=== PATIENT | female | born 1990 | race Caucasian/White ===

== ENCOUNTER 2017-03-28 09:07 | Emergency (ER) | payer BC ==
[2017-03-28 09:28] VITALS: BP 120/71
[2017-03-28] MEDS ORDERED: Sodium Chloride 0.9% 1,000 ML IV ONE (09:42)
[2017-03-28] MEDS ORDERED: Ondansetron 4 MG/2 ML SDV IVPUSH ONE (09:42)
[2017-03-28] MEDS ORDERED: Sodium Chloride 0.9% 10 ML Syringe FLUSH PRN (09:42)
--- NOTE | 2017-03-28 09:47 | EDM.PDOC ---
ED HPI GENERAL MEDICAL PROBLEM - General Chief Complaint: Gastrointestinal Problem Stated Complaint: UNCONTROLLABLE VOMITING Time Seen by Provider: 03/28/17 09:31 Source of Information: Reports: Patient History Limitations: Reports: No Limitations - History of Present Illness INITIAL COMMENTS - FREE TEXT/NARRATIVE: Patient reports having diarrhea and vomiting since midnight this AM. States no one else has been sick. Low grade temperature. Has no headache. Some chills. Surgical history includes c-sections. Denies smoking history, no drug use, rare alcohol. Denies chest pain, SOB, no blood in urine, stool, or emesis. Complaint today is vomiting and diarrhea. No other complaints. Onset: Today, Sudden Onset Date: 03/28/17 Onset Time: 00:00 Duration: Intermittent Location: Reports: Abdomen Quality: Reports: Ache, Other (cramping) Severity: Moderate Associated Symptoms: Reports: Nausea/Vomiting Abdominal Pain Score (Numeric/FACES): 8 - Related Data Allergies Allergy/AdvReac Type Severity Reaction Status Date / Time No Known Allergies Allergy Verified 03/28/17 09:21 Home Meds: Home Meds FLUoxetine HCl [Fluoxetine HCl] 40 mg DAILY 03/28/17 [History] Pantoprazole Sodium [Protonix] 10 mg DAILY 03/28/17 [History] Past Medical History HEENT History: Reports: Otitis Media [employer]GER [employer] History: Reports: , Other (See Below) Other OB/BYN History: Patient is 13-14 weeks currently and has had a previous . Musculoskeletal History: Reports: Other (See Below) Other Musculoskeletal History: History of sciatic pain - Past Surgical History HEENT Surgical History: Reports: Other (See Below) Social & Family History - Tobacco Use Smoking Status *Q: Current Every Day Smoker Years of Tobacco use: 15 Packs/Tins Daily: 0.5 - Recreational Drug Use Recreational Drug Use: No ED ROS GENERAL - Review of Systems Review Of Systems: See Below Constitutional: Reports: No Symptoms HEENT: Reports: No Symptoms Respiratory: Reports: No Symptoms Cardiovascular: Reports: No Symptoms Endocrine: Reports: No Symptoms GI/Abdominal: Reports: Abdominal Pain, Diarrhea, Nausea, Vomiting : Reports: No Symptoms Musculoskeletal: Reports: No Symptoms Skin: Reports: No Symptoms Neurological: Reports: No Symptoms Psychiatric: Reports: No Symptoms Hematologic/Lymphatic: Reports: No Symptoms Immunologic: Reports: No Symptoms ED EXAM, GI/ABD - Physical Exam Exam: See Below Exam Limited By: No Limitations General Appearance: Alert, WD/WN, Mild Distress Eyes: Bilateral: EOMI Ears: Normal TMs Nose: Normal Inspection Throat/Mouth: Normal Inspection, Normal Oropharynx Head: Atraumatic, Normocephalic Neck: Normal Inspection Respiratory/Chest: No Respiratory Distress, Lungs Clear, Normal Breath Sounds, No Accessory Muscle Use, Chest Non-Tender Cardiovascular: Normal Peripheral Pulses, Regular Rate, Rhythm, No Edema, No Gallop, No Murmur GI/Abdominal Exam: Soft, Tender, Abnormal Bowel Sounds (hypoactive) Extremities: Normal Inspection, Normal Range of Motion, Non-Tender, Normal Capillary Refill Neurological: Alert, Oriented, CN II-XII Intact, Normal Cognition, Normal Gait, Normal Reflexes, No Motor/Sensory Deficits Psychiatric: Normal Affect, Normal Mood Skin Exam: Warm, Dry, Intact, Normal Color, No Rash Lymphatic: No Adenopathy Course - Vital Signs Last Recorded V/S: Last Vital Signs Temp 37.4 C 03/28/17 09:10 Pulse 112 H 03/28/17 09:10 Resp 16 03/28/17 09:10 BP 120/71 03/28/17 09:10 Pulse Ox - Orders/Labs/Meds Orders: Active Orders 24 hr Category Date Time Status Sodium Chloride 0.9% [Saline Flush] Med 03/28/17 09:42 Active 10 ml FLUSH ASDIRECTED PRN Saline Lock Insert [OM.PC] Routine Oth 03/28/17 09:42 Ordered Medication Orders Sodium Chloride (Saline Flush) 10 ml FLUSH ASDIRECTED PRN PRN Reason: Keep Vein Open Labs: Laboratory Tests 03/28/17 03/28/17 Range/Units 09:52 09:52 WBC 11.4 H (4.0-10.0) x10^3/uL RBC 5.33 (4.00-5.50) x10^6/uL Hgb 16.0 (12.0-16.0) g/dL Hct 45.1 (33.0-47.0) % MCV 84.6 (78.0-93.0) fL MCH 30.0 (26.0-32.0) pg MCHC 35.5 (32.0-36.0) g/dL RDW Coeff of Bri 13.4 (10.0-15.0) % Plt Count 235 (130-400) x10^3/uL Neut % (Auto) 92.1 H (50.0-80.0) % Lymph % (Auto) 4.1 L (25.0-50.0) % [place] % (Auto) 3.7 (2.0-11.0) % Eos % (Auto) 0.0 (0.0-4.0) % Baso % (Auto) 0.1 L (0.2-1.2) % Sodium 139 (136-145) mmol/L Potassium 4.0 (3.5-5.1) mmol/L Chloride 104 (98-107) mmol/L Carbon Dioxide 23 (21-32) mmol/L BUN 16 (7-18) mg/dL Creatinine 1.0 (0.55-1.02) mg/dL Est Cr Clr Drug Dosing 60.16 mL/min Estimated GFR (MDRD) > 60 Glucose 128 H (74-106) mg/dL Calcium 8.7 (8.5-10.1) mg/dL C-Reactive Protein 4.3 H (<=0.9) mg/dL Meds: Medications Generic Name Dose Route Start Last Admin Trade Name Freq PRN Reason Stop Dose Admin Sodium Chloride 10 ml 03/28/17 09:42 Saline Flush FLUSH ASDIRECTED PRN Keep Vein Open Discontinued Medications Generic Name Dose Route Start Last Admin Trade Name Freq PRN Reason Stop Dose Admin Sodium Chloride 1,000 mls @ 999 mls/hr 03/28/17 09:42 03/28/17 10:10 Normal Saline IV 03/28/17 10:42 999 mls/hr ONETIME ONE Administration Ondansetron HCl 4 mg 03/28/17 09:42 03/28/17 10:11 Zofran IVPUSH 03/28/17 09:43 4 mg ONETIME ONE Administration - Re-Assessments/Exams Free Text/Narrative Re-Assessment/Exam: 03/28/17 09:48 Will hydrate with 1-2 liters of saline, will give anti emetic, check electrolytes and blood count. 03/28/17 10:55 given script for zofran Departure - Departure Time of Disposition: 10:57 Disposition: Home, Self-Care 01 Condition: Good Clinical Impression: Gastroenteritis - Discharge Information Instructions: Dehydration, Adult, [id number], Viral Gastroenteritis, Adult, [id number], Nausea and Vomiting, Adult, [id number], Diarrhea, Adult, Easy-to -Read Forms: ED Department Discharge Additional Instructions: Try to stay hydrated as well as you can with water or powerade/gatorade type drinks. Make sure you practice good hand hygiene to prevent spreading the illness to others at work or home. See your primary doctor as symptoms warrant. Please call us with any questions or concerns. - Problem List & Annotations (1) Gastroenteritis SNOMED Code(s): 81970818 Code(s): K52.9 - NONINFECTIVE GASTROENTERITIS AND COLITIS, UNSPECIFIED Status: Acute Priority: Low Current Visit: Yes - Problem List Review Problem List Initiated/Reviewed/Updated: Yes - My Orders Last 24 Hours: My Active Orders 03/28/17 09:42 Sodium Chloride 0.9% [Saline Flush] 10 ml FLUSH ASDIRECTED PRN Saline Lock Insert [OM.PC] Routine - Assessment/Plan Last 24 Hours: My Active Orders 03/28/17 09:42 Sodium Chloride 0.9% [Saline Flush] 10 ml FLUSH ASDIRECTED PRN Saline Lock Insert [OM.PC] Routine Assessment:: viral gastroenteritis Plan: Try to stay hydrated as well as you can with water or powerade/gatorade type drinks. Make sure you practice good hand hygiene to prevent spreading the illness to others at work or home. See your primary doctor as symptoms warrant. Please call us with any questions or concerns.
[2017-03-28 10:18] LABS: CHLORIDE,CL 104 mmol/L (98-107); SODIUM,NA 139 mmol/L (136-145)
== END 2017-03-28 11:05 | disposition home or self-care (01) ==
LOC: VM.ED 09:07
DX: O99.611 Diseases of the digestive system complicating pregnancy, first trimester (principal); K52.9 Noninfective gastroenteritis and colitis, unspecified; O99.331 Smoking (tobacco) complicating pregnancy, first trimester; F17.210 Nicotine dependence, cigarettes, uncomplicated; Z79.899 Other long term (current) drug therapy; Z3A.13 13 weeks gestation of pregnancy
CPT/HCPCS: 36415; 80048; 85025; 86140; 96361; 96374; 99284; J2405; J7030

== ENCOUNTER 2017-09-25 17:34 | Emergency (ER) | payer BC ==
[2017-09-25 17:49] VITALS: BP 139/77
[2017-09-25] MEDS ORDERED: Sodium Chloride 0.9% 10 ML Syringe FLUSH PRN (17:58)
[2017-09-25] MEDS ORDERED: HYDROmorphone 1 MG/ML Syringe IVPUSH ONE (17:59)
[2017-09-25] MEDS ORDERED: Sodium Chloride 0.9% 1,000 ML IV ONE (17:59)
[2017-09-25] MEDS ORDERED: Ondansetron 4 MG/2 ML SDV IVPUSH ONE (18:00)
[2017-09-25 18:48] LABS: CHLORIDE,CL 104 mmol/L (98-107); SODIUM,NA 140 mmol/L (136-145)
--- NOTE | 2017-09-25 18:56 | EDM.PDOC ---
ED HPI GENERAL MEDICAL PROBLEM - General Chief Complaint: Abdominal Pain Time Seen by Provider: 09/25/17 17:58 Source of Information: Reports: Patient History Limitations: Reports: No Limitations - History of Present Illness INITIAL COMMENTS - FREE TEXT/NARRATIVE: Pt. presents to ER with complaints of RLQ abdominal pain that started at apprx. 2:30 this afternoon. Pt. states that the discomfort is worsening. She has a decreased appetite. Denies any fever or chills. She did have a normal BM today as well as 3 yesterday. She states that they were formed. Denies vomiting or diarrhea. SHe has been very nauseated. She has had 2 previous c-sections and has had general anesthesia for wisdom tooth removal and denies any issues with anesthesia. She denies any pertinent PMH. Pt. states that the pain started out as dull and crampy but has become more sharp. She states that the pain does not radiate elsewhere, and localized to her RLQ. She states that the pain is worse with movement, particularly walking. Onset: Today Onset Date: 09/25/17 Onset Time: 14:30 Duration: Constant, Getting Worse Location: Reports: Abdomen Quality: Reports: Sharp Severity: Moderate Improves with: Reports: Rest Worsens with: Reports: Movement Associated Symptoms: Reports: Nausea/Vomiting Right Lower Abdomen Pain Score (Numeric/FACES): 8 - Related Data Allergies Allergy/AdvReac Type Severity Reaction Status Date / Time No Known Allergies Allergy Verified 09/25/17 17:45 Home Meds: Home Meds . 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 Musculoskeletal History: Reports: Other (See Below) Other Musculoskeletal History: History of sciatic pain Psychiatric History: Reports: Depression - Past Surgical History Female Surgical History: Reports: Section Social & Family History - Tobacco Use Smoking Status *Q: Current Every Day Smoker Years of Tobacco use: 15 Packs/Tins Daily: 1 - Alcohol Use Days Per Week of Alcohol Use: 1 Number of Drinks Per Day: 1 Total Drinks Per Week: 1 - Recreational Drug Use Recreational Drug Use: No Drug Use in Last 12 Months: No Recreational Drug Type: Reports: Marijuana/Hashish ED ROS GENERAL - Review of Systems Review Of Systems: See Below Constitutional: Reports: Decreased Appetite. Denies: Fever, Chills, Fatigue, Diaphoresis HEENT: Reports: No Symptoms Respiratory: Reports: No Symptoms Cardiovascular: Reports: No Symptoms Endocrine: Reports: No Symptoms GI/Abdominal: Reports: Abdominal Pain (RLQ), Decreased Appetite, Nausea. Denies : Black Stool, Bloody Stool, Diarrhea, Distension, Flatus, Hematochezia, Melena , Mucous in Stool, Vomiting : Reports: No Symptoms Musculoskeletal: Reports: No Symptoms Skin: Reports: No Symptoms Neurological: Reports: No Symptoms Psychiatric: Reports: No Symptoms Hematologic/Lymphatic: Reports: No Symptoms Immunologic: Reports: No Symptoms ED EXAM, GENERAL - Physical Exam Exam: See Below Exam Limited By: No Limitations General Appearance: Alert, WD/WN, No Apparent Distress Eye Exam: Bilateral Eye: EOMI, Normal Fundi, Normal Inspection, PERRL Throat/Mouth: Normal Inspection, Normal Lips, Normal Teeth, Normal Gums, Normal Oropharynx, Normal Voice, No Airway Compromise Head: Atraumatic, Normocephalic Neck: Normal Inspection, Supple, Non-Tender, Full Range of Motion Respiratory/Chest: No Respiratory Distress, Lungs Clear, Normal Breath Sounds, No Accessory Muscle Use, Chest Non-Tender Cardiovascular: Normal Peripheral Pulses, Regular Rate, Rhythm, No Edema, No Gallop, No JVD, No Murmur, No Rub Peripheral Pulses: 4+: Radial (L), Radial (R) GI/Abdominal: Normal Bowel Sounds, Soft, Guarding, Rebound, Tender (RLQ). No: Distended, Abnormal Bowel Sounds, Hepatomegaly, Splenomegaly (Female) Exam: Deferred Rectal (Female) Exam: Deferred Back Exam: Normal Inspection, Full Range of Motion, NT Extremities: Normal Inspection, Normal Range of Motion, Non-Tender, Normal Capillary Refill, No Pedal Edema Neurological: Alert, Oriented, CN II-XII Intact, Normal Cognition, Normal Gait, Normal Reflexes, No Motor/Sensory Deficits Psychiatric: Normal Affect, Normal Mood Skin Exam: Warm, Dry, Intact, Normal Color, No Rash Lymphatic: No Adenopathy Course - Vital Signs Last Recorded V/S: Last Vital Signs Temp 36.9 C 09/25/17 17:45 Pulse 101 H 09/25/17 17:45 Resp 16 09/25/17 17:45 BP 139/77 09/25/17 17:45 Pulse Ox 97 09/25/17 17:45 - Orders/Labs/Meds Orders: Active Orders 24 hr Category Date Time Status Abdomen Pelvis w Cont [CT] Stat Exams 09/25/17 18:50 Taken Sodium Chloride 0.9% [Normal Saline] 1,000 ml Med 09/25/17 17:59 Active IV .BOLUS Sodium Chloride 0.9% [Saline Flush] Med 09/25/17 17:58 Active 10 ml FLUSH ASDIRECTED PRN Peripheral IV Insertion Adult [OM.PC] Routine Oth 09/25/17 17:59 Ordered Medication Orders Sodium Chloride (Normal Saline) 1,000 mls @ 125 mls/hr IV .BOLUS ONE Stop: 09/26/17 01:58 Last Admin: 09/25/17 18:06 Dose: 125 mls/hr Sodium Chloride (Saline Flush) 10 ml FLUSH ASDIRECTED PRN PRN Reason: Keep Vein Open Labs: Laboratory Tests 09/25/17 09/25/17 09/25/17 Range/Units 17:50 17:50 17:55 WBC 11.8 H (4.0-10.0) x10^3/uL RBC 4.57 (4.00-5.50) x10^6/uL Hgb 14.0 D (12.0-16.0) g/dL Hct 41.1 (33.0-47.0) % MCV 89.9 D (78.0-93.0) fL MCH 30.6 (26.0-32.0) pg MCHC 34.1 (32.0-36.0) g/dL RDW Coeff of Bri 13.1 (10.0-15.0) % Plt Count 256 (130-400) x10^3/uL Neut % (Auto) 62.6 (50.0-80.0) % Lymph % (Auto) 27.5 (25.0-50.0) % [place] % (Auto) 8.1 (2.0-11.0) % Eos % (Auto) 1.5 (0.0-4.0) % Baso % (Auto) 0.3 (0.2-1.2) % PT (9.8-11.8) SEC INR (2.0-3.5) Sodium (136-145) mmol/L Potassium (3.5-5.1) mmol/L Chloride (98-107) mmol/L Carbon Dioxide (21-32) mmol/L BUN (7-18) mg/dL Creatinine (0.55-1.02) mg/dL Est Cr Clr Drug Dosing Estimated GFR (MDRD) Glucose (74-106) mg/dL Lactic Acid (0.4-2.0) mmol/L Calcium (8.5-10.1) mg/dL Corrected Calcium (8.5-10.1) mg/dL Phosphorus (2.6-4.7) mg/dL Magnesium (1.8-2.4) mg/dL Total Bilirubin (0.2-1.0) mg/dL AST (15-37) U/L ALT (14-59) U/L Alkaline Phosphatase (46-116) U/L C-Reactive Protein (<=0.9) mg/dL Total Protein (6.4-8.2) g/dL Albumin (3.4-5.0) g/dL Globulin Albumin/Globulin Ratio Amylase (25-115) U/L Urine Color Yellow (YELLOW) Urine Appearance Cloudy H (CLEAR) Urine pH 7.0 (5.0-8.0) Ur Specific [place] 1.020 Urine Protein Negative (NEGATIVE) mg/dL Urine Glucose (UA) Negative (NEGATIVE) mg/dL Urine Ketones Negative (NEGATIVE) mg/dL Urine Occult Blood Negative (NEGATIVE) Urine Nitrite Negative (NEGATIVE) Urine Bilirubin Negative (NEGATIVE) Urine Urobilinogen 0.2 (0.2) EU/dL Ur Leukocyte Esterase Trace H (NEGATIVE) Urine RBC 0-5 (NOT SEEN) /HPF Urine WBC 0-5 (NOT SEEN) /HPF Ur Squamous Epith Cells Moderate H (NEGATIVE) /HPF Amorphous Sediment Many Urine Bacteria Moderate H (NEGATIVE) /HPF Urine Mucus Not seen (NEGATIVE) /LPF POC Urine HCG, Qual Negative 09/25/17 09/25/17 09/25/17 Range/Units 17:55 17:55 17:55 WBC (4.0-10.0) x10^3/uL RBC (4.00-5.50) x10^6/uL Hgb (12.0-16.0) g/dL Hct (33.0-47.0) % MCV (78.0-93.0) fL MCH (26.0-32.0) pg MCHC (32.0-36.0) g/dL RDW Coeff of Bri (10.0-15.0) % Plt Count (130-400) x10^3/uL Neut % (Auto) (50.0-80.0) % Lymph % (Auto) (25.0-50.0) % [place] % (Auto) (2.0-11.0) % Eos % (Auto) (0.0-4.0) % Baso % (Auto) (0.2-1.2) % PT 10.1 (9.8-11.8) SEC INR 0.9 L (2.0-3.5) Sodium 140 (136-145) mmol/L Potassium 3.5 (3.5-5.1) mmol/L Chloride 104 (98-107) mmol/L Carbon Dioxide 27 (21-32) mmol/L BUN 16 (7-18) mg/dL Creatinine 0.7 (0.55-1.02) mg/dL Est Cr Clr Drug Dosing TNP Estimated GFR (MDRD) > 60 Glucose 108 H (74-106) mg/dL Lactic Acid 1.1 (0.4-2.0) mmol/L Calcium 9.0 (8.5-10.1) mg/dL Corrected Calcium 9.32 (8.5-10.1) mg/dL Phosphorus 3.9 (2.6-4.7) mg/dL Magnesium 1.7 L (1.8-2.4) mg/dL Total Bilirubin 0.2 (0.2-1.0) mg/dL AST 10 L (15-37) U/L ALT 21 (14-59) U/L Alkaline Phosphatase 77 (46-116) U/L C-Reactive Protein < 0.2 (<=0.9) mg/dL Total Protein 6.9 (6.4-8.2) g/dL Albumin 3.6 (3.4-5.0) g/dL Globulin 3.3 Albumin/Globulin Ratio 1.09 Amylase 45 (25-115) U/L Urine Color (YELLOW) Urine Appearance (CLEAR) Urine pH (5.0-8.0) Ur Specific [place] Urine Protein (NEGATIVE) mg/dL Urine Glucose (UA) (NEGATIVE) mg/dL Urine Ketones (NEGATIVE) mg/dL Urine Occult Blood (NEGATIVE) Urine Nitrite (NEGATIVE) Urine Bilirubin (NEGATIVE) Urine Urobilinogen (0.2) EU/dL Ur Leukocyte Esterase (NEGATIVE) Urine RBC (NOT SEEN) /HPF Urine WBC (NOT SEEN) /HPF Ur Squamous Epith Cells (NEGATIVE) /HPF Amorphous Sediment Urine Bacteria (NEGATIVE) /HPF Urine Mucus (NEGATIVE) /LPF POC Urine HCG, Qual Meds: Medications Generic Name Dose Route Start Last Admin Trade Name Freq PRN Reason Stop Dose Admin Sodium Chloride 1,000 mls @ 125 mls/hr 09/25/17 17:59 09/25/17 18:06 Normal Saline IV 09/26/17 01:58 125 mls/hr .BOLUS ONE Administration Sodium Chloride 10 ml 09/25/17 17:58 Saline Flush FLUSH ASDIRECTED PRN Keep Vein Open Discontinued Medications Generic Name Dose Route Start Last Admin Trade Name Freq PRN Reason Stop Dose Admin Hydrocodone Bitart/Acetaminophen 1 packet 09/25/17 19:48 09/25/17 19:59 Take Home: Acetaminophen/Hydrocodone 325-10mg PO 09/25/17 19:49 1 packet ONETIME ONE Administration Hydromorphone HCl 1 mg 09/25/17 17:59 09/25/17 18:03 Dilaudid IVPUSH 09/25/17 18:00 1 mg ONETIME ONE Administration Iopamidol 100 ml 09/25/17 18:57 09/25/17 19:07 Isovue-300 (61%) IVPUSH 09/25/17 18:58 100 ml ONETIME ONE Administration Ondansetron HCl 4 mg 09/25/17 18:00 09/25/17 18:06 Zofran IVPUSH 09/25/17 18:01 4 mg ONETIME ONE Administration - Radiology Interpretation Free Text/Narrative:: CT scan abd/pelvis was negative for appy. She did have evidence of R sided ruptured ovarian cyst. Departure - Departure Time of Disposition: 08:02 Disposition: Home, Self-Care 01 Clinical Impression: Ovarian cyst - Discharge Information Instructions: Ovarian Cyst, [id number] Referrals: Sri Soliz MD [Primary Care Provider] - Forms: ED Department Discharge Additional Instructions: Ibuprofen 600mg every 6 hours. If this isn't helping, Reva 10/325mg 1/2-1 tab every 4-6 hours as needed for pain. Follow-up in ER in 10-14 days, sooner if not gradually improving. - My Orders Last 24 Hours: My Active Orders 09/25/17 17:58 Sodium Chloride 0.9% [Saline Flush] 10 ml FLUSH ASDIRECTED PRN 09/25/17 17:59 Sodium Chloride 0.9% [Normal Saline] 1,000 ml IV .BOLUS Peripheral IV Insertion Adult [OM.PC] Routine 09/25/17 18:50 Abdomen Pelvis w Cont [CT] Stat - Assessment/Plan Last 24 Hours: My Active Orders 09/25/17 17:58 Sodium Chloride 0.9% [Saline Flush] 10 ml FLUSH ASDIRECTED PRN 09/25/17 17:59 Sodium Chloride 0.9% [Normal Saline] 1,000 ml IV .BOLUS Peripheral IV Insertion Adult [OM.PC] Routine 09/25/17 18:50 Abdomen Pelvis w Cont [CT] Stat
[2017-09-25] MEDS ORDERED: Iopamidol 612 MG/ML 100 ML Bottle IVPUSH ONE (18:57)
[2017-09-25] MEDS ORDERED: Take Home: Acetaminophen/HYDROcodone 325-10 MG, 5 Tab Pack PO ONE (19:48)
== END 2017-09-25 20:03 | disposition home or self-care (01) ==
LOC: VM.ED 17:34
DX: N83.201 Unspecified ovarian cyst, right side (principal); F17.210 Nicotine dependence, cigarettes, uncomplicated
CPT/HCPCS: 36415; 74177; 80053; 81001; 81025; 82150; 83605; 83735; 84100; 85025; 85610; 86140; 96361; 96374; 96375; 99284; A9270-GY; J1170; J2405; J7030; Q9967